=== PATIENT | male | born 1990 | race American Indian/Alaskan Native ===

== ENCOUNTER 2016-09-11 10:27 | Emergency (ER) | payer SELFPAY ==
[2016-09-11] MEDS ORDERED: NORCO 5/325 PO ONE (13:02)
--- NOTE | 2016-09-11 13:07 | Emergency Department Report ---
ED Extremity Problem HPI - General Chief complaint: Medical Clearance Stated complaint: SORE VEIN Time Seen by Provider: 09/11/16 12:26 Source: patient Mode of arrival: Ambulatory Limitations: No Limitations - History of Present Illness Initial comments: PT states he has been donating plasma for 3-4 years. PT states a little over a week ago, he donated plasma and his arm was sore. PT states he went back the next day and he had increase pain when they put the needle in his arm. PT states they have been using the same site. PT states his pain is a 6/10 and he has swelling to the R arm. PT states the arm pain is worse with movement and he has not been able to do anything. PT denies cp and sob. MD Complaint: extremity pain, extremity swelling Onset/Timin -: Gradual, week(s) Location: right, upper extremity History of Same: No Severity scale (0 -10): 6 Quality: aching Consistency: constant Improves with: nothing Worsens with: palpation, other (movement ) Associated Symptoms: denies other symptoms. denies: chest pain, shortness of breath, fever - Related Data Previous Rx's Medication Instructions Recorded Last Taken Type Acetaminophen/Codeine [Tylenol #3] 1 tab PO Q6H PRN #12 tab 09/11/16 Unknown Rx Dabigatran [Pradaxa] 150 mg PO BID #60 capsule 09/11/16 Unknown Rx Allergies Allergy/AdvReac Type Severity Reaction Status Date / Time No Known Allergies Allergy Verified 09/11/16 13:58 ED Review of Systems ROS: Stated complaint: SORE VEIN Other details as noted in HPI Comment: All other systems reviewed and negative Constitutional: denies: fever Respiratory: denies: shortness of breath, SOB with exertion, SOB at rest Cardiovascular: denies: chest pain, syncope Musculoskeletal: as per HPI Skin: other (swelling to site of INT ) ED Past Medical Hx - Past Medical History Additional medical history: CHRONIC BACK PAIN - Surgical History Past Surgical History?: No - Social History Smoking Status: Current Every Day Smoker Substance Use Type: None - Medications Home Medications: Home Medications Medication Instructions Recorded Confirmed Last Taken Type Acetaminophen/Codeine [Tylenol #3] 1 tab PO Q6H PRN #12 tab 09/11/16 Unknown Rx Dabigatran [Pradaxa] 150 mg PO BID #60 capsule 09/11/16 Unknown Rx ED Physical Exam - General Limitations: No Limitations General appearance: alert, in no apparent distress - Head Head exam: Present: atraumatic, normocephalic, normal inspection - Eye Eye exam: Present: normal appearance. Absent: conjunctival injection - ENT ENT exam: Present: normal exam, normal external ear exam - Neck Neck exam: Present: normal inspection, full ROM - Respiratory Respiratory exam: Present: normal lung sounds bilaterally. Absent: respiratory distress, wheezes, rales, rhonchi, stridor, chest wall tenderness - Cardiovascular Cardiovascular Exam: Present: regular rate, normal rhythm, normal heart sounds - GI/Abdominal GI/Abdominal exam: Present: soft. Absent: tenderness - Expanded Upper Extremity Exam Right Shoulder Exam: Present: normal inspection, full ROM. Absent: tenderness Elbow exam: Present: tenderness (To R AC ), swelling. Absent: full ROM ( decreased due to pain ), laceration, ecchymosis, erythema, tenderness over radial head Forearm Wrist exam: Present: normal inspection, full ROM Vascular: Present: radial pulse. Absent: vascular compromise - Back Exam Back exam: Present: normal inspection, full ROM - Neurological Exam Neurological exam: Present: alert, oriented X3, normal gait - Psychiatric Psychiatric exam: Present: normal affect, normal mood - Skin Skin exam: Present: warm, dry, intact, other (scar/ puncture wound to R AC ) ED Course Vital Signs 09/11/16 09/11/16 10:34 17:04 Temperature 99.2 F 98.4 F Pulse Rate 92 H 81 Respiratory 15 20 Rate Blood Pressure 133/83 Blood Pressure 147/85 [Left] O2 Sat by Pulse 100 99 Oximetry - Reevaluation(s) Reevaluation #1: 09/11/16 13:14 Dr Shipley aware of pt and agrees with plan of care. PT aware of DX. PT now states that he has had intermittent SOB x 3 days. PT states 3 days ago, he walked across the street and became so SOB, he thought he was going to pass out. PT also states that his father told him that they know someone that of a blood clot. Reevaluation #2: 09/11/16 16:[address] result. PT has no questions at this time. - Pulse Oximetry Interpretation Digit-Finger Initial Pulse Oximetry Readin Actions Taken: none ED Medical Decision Making - Lab Data Result diagrams: 09/11/16 13:41 09/11/16 13:41 Lab Results 09/11/16 09/11/16 Range/Units 13:41 13:41 WBC 6.9 (4.5-11.0) K/mm3 RBC 5.25 H (3.65-5.03) M/mm3 Hgb 14.4 (11.8-15.2) gm/dl Hct 43.9 (35.5-45.6) % MCV 84 (84-94) fl MCH 27 L (28-32) pg MCHC 33 (32-34) % RDW 13.7 (13.2-15.2) % Plt Count 302 (140-440) K/mm3 Lymph % (Auto) 12.5 L (13.4-35.0) % [place] % (Auto) 8.5 H (0.0-7.3) % Eos % (Auto) 2.2 (0.0-4.3) % Baso % (Auto) 0.5 (0.0-1.8) % Lymph # 0.9 L (1.2-5.4) K/mm3 [place] # 0.6 (0.0-0.8) K/mm3 Eos # 0.2 (0.0-0.4) K/mm3 Baso # 0.0 (0.0-0.1) K/mm3 Seg Neutrophils % 76.3 H (40.0-70.0) % Seg Neutrophils # 5.2 (1.8-7.7) K/mm3 Sodium 142 (137-145) mmol/L Potassium 4.0 (3.6-5.0) mmol/L Chloride 105.6 (98-107) mmol/L Carbon Dioxide 25 (22-30) mmol/L Anion Gap 15 mmol/L BUN 6 L (9-20) mg/dL Creatinine 0.7 L (0.8-1.5) mg/dL Estimated GFR > 60 ml/min BUN/Creatinine Ratio 8.57 % Glucose 83 (75-100) mg/dL Calcium 8.5 (8.4-10.2) mg/dL - Radiology Data Radiology results: report reviewed Doppler RUE- No DVT, SVT in R Cephalic vein Chest CTA- No PE - Differential Diagnosis phelbitis, dvt, abscess Critical Care Time: No Critical care attestation.: If time is entered above; I have spent that time in minutes in the direct care of this critically ill patient, excluding procedure time. ED Disposition Clinical Impression: Superficial venous thrombosis of arm Qualifiers: Laterality: right Qualified Code(s): I82.611 - Acute embolism and thrombosis of superficial veins of right upper extremity Disposition: TO HOME OR SELFCARE Is pt being admited?: No Does the pt Need Aspirin: No Condition: Stable Instructions: Deep Venous Thrombosis (ED) Additional Instructions: Follow up with PCP in 2-3 days [address] or alcohol with Tylenol #3 Do not take NSAIDs with your RX (Motrin, Aleve, Aspirin) as this can increase your bleeding risk Return to the ED if your pain or swelling increase, you develop chest pain or sob or you have bleeding that you can not stop Prescriptions: Acetaminophen/Codeine [Tylenol #3] 1 tab PO Q6H PRN #12 tab PRN Reason: Pain , Severe (7-10) Dabigatran [Pradaxa] 150 mg PO BID #60 capsule Referrals: PRIMARY CARE, [Primary Care Provider] - 3-5 Days MADELINE GOETZ MD [Staff Physician] - 3-5 Days [facility] [Outside] - 3-5 Days BILLY ARREDONDO MD [Staff Physician] - 3-5 Days Forms: Work/School Release Form(ED) Time of Disposition: 16:31
[2016-09-11] MEDS ORDERED: NACL ONE (13:51)
[2016-09-11 13:58] LABS: Basophils % (Auto) 0.5 % (0.0-1.8); Eosinophils % (Auto) 2.2 % (0.0-4.3); Hematocrit 43.9 % (35.5-45.6); Hemoglobin 14.4 gm/dl (11.8-15.2); Mean Corpuscular HGB Conc 33 % (32-34); Mean Corpuscular Hemoglobin 27 pg (28-32); Mean Corpuscular Volume 84 fl (84-94); Platelet Count 302 K/mm3 (140-440); Red Blood Count 5.25 M/mm3 (3.65-5.03); Red Cell Distribution Width 13.7 % (13.2-15.2); White Blood Count 6.9 K/mm3 (4.5-11.0)
[2016-09-11 14:15] LABS: Anion Gap 15 mmol/L; BUN/Creatinine Ratio 8.57; Blood Urea Nitrogen 6 mg/dL (9-20); Calcium 8.5 mg/dL (8.4-10.2); Carbon Dioxide 25 mmol/L (22-30); Chloride 105.6 mmol/L (98-107); Glucose 83 mg/dL (75-100); Sodium 142 mmol/L (137-145)
--- NOTE | 2016-09-11 16:09 | Cat Scan Report ---
FINAL REPORT EXAM: CT ANGIO CHEST HISTORY: sob TECHNIQUE: Enhanced CT of the chest at 2.5 mm axial intervals following a pulmonary embolism protocol. Coronal and sagittal imaging were also obtained. Coronal oblique MIP projections were obtained. Contrast: 100 ml of Omnipaque 350 given IV. PRIORS: None. FINDINGS: There is no evidence for pulmonary embolism in the main pulmonary artery, right and left pulmonary arteries or their major distributions. However, CT does not exclude distal pulmonary emboli. There are mild patchy infiltrates in each lung base posteriorly, likely due to mild atelectasis. A few small bulla in the right apex laterally are noted. Otherwise, the lung parenchyma are expanded and clear with no evidence for congestion, or pleural effusion. There is a 5 mm uncalcified nodule identified (axial image 53). There is no evidence for mediastinal, hilar, or axillary adenopathy. Cardiovascular structures are within normal limits. No evidence for ventricular chamber enlargement is seen. Images through the lung bases include the upper abdomen which show no abnormalities of the visualized abdominal viscera. Bony structures demonstrate no focal abnormalities. IMPRESSION: 1. no evidence for pulmonary embolism. 2. Small 5 mm uncalcified nonspecific nodule in the right middle lobe. As the patient is \T\lt; 35 years old, this need not be followed further. However, it clinical concern warrants, it can be followed according to Fleischner criteria below [employer] GUIDELINES FOR MANAGEMENT OF SMALL PULMONARY NODULES DETECTED ON CT SCANS- Nodule Size Low Risk High Risk (mm) \T\gt; 4-6 F/U 12 mos Initial F/U CT at if unchanged 6-12 mo then at no further F/U 18-24 mo if no change Note- Newly detected indeterminate nodule in persons 35 years or older Low-risk patient = Minimal or absent history of smoking and of other known risk factors High risk patient = History of smoking or other known risk factors
[2016-09-11 17:07] VITALS: BP 147/85
--- NOTE | 2016-09-12 08:27 | Vascular Lab Report ---
RIGHT UPPER EXTREMITY VENOUS DUPLEX: REASON FOR EXAM: Pain and swelling of the right upper extremity COMMENTS ON THE RIGHT: All deep arm veins visualized are freely compressible without evidence of internal echogenicity. The subclavian and internal jugular veins are free of thrombus. Flow is spontaneous and phasic throughout. Superficial thrombophlebitis noted in the right cephalic vein COMMENTS ON THE LEFT: The subclavian and internal jugular veins are free of thrombus. IMPRESSION: No evidence of acute or chronic deep venous thrombosis in the right upper extremity. Superficial thrombophlebitis noted in the right upper extremity
== END 2016-09-11 17:04 | disposition home or self-care (01) ==
LOC: ED 10:27
DX: I82.611 Acute embolism and thrombosis of superficial veins of right upper extremity (principal); G89.29 Other chronic pain; F17.200 Nicotine dependence, unspecified, uncomplicated
CPT/HCPCS: 36415; 71275; 80048; 85025; 93971; 99284; Q9967